=== PATIENT | female | born 1965 | race Caucasian/White ===

== ENCOUNTER 2022-04-27 21:03 | Emergency (ER) | payer BC ==
[2022-04-27] MEDS ORDERED: MORPHINE 4 MG/ML SYR ONE (21:31)
[2022-04-27] MEDS ORDERED: DOXYCYCLINE 100 MG CAP PO ONE (21:31)
[2022-04-27] MEDS ORDERED: ONDANSETRON 4 MG/2 ML VIAL ONE (21:31)
[2022-04-27] MEDS ORDERED: NA CHLORIDE 0.9% 1,000 ML ONE (21:31)
[2022-04-27] MEDS ORDERED: TETANUS & DIPHTHERIA TOX,ADULT 0.5 ML VIAL ONE (21:32)
[2022-04-27 21:35] LABS: Absolute Lymphocytes (CBC) 1.5 K/uL (0.7-4.9); Hematocrit 36.1 % (36.0-45.0); Lymphocytes % 12.4 % (15.3-44.8); MCV 78.7 fL (80-100); MPV 7.7 fL (7.6-11.3); RBC Red Blood Cell Count 4.59 M/uL (3.86-4.86)
[2022-04-27 21:49] LABS: Albumin 3.7 g/dL (3.4-5.0); Bilirubin Total 0.2 mg/dL (0.2-1.0); Potassium 3.7 mmol/L (3.5-5.1); Protein, Total 7.7 g/dL (6.4-8.2)
--- NOTE | 2022-04-27 22:08 | RAD REPORT ---
EXAM DESCRIPTION: RAD - Foot Right 3 View - 04/27/2022 9:43 pm CLINICAL HISTORY: PAIN COMPARISON: No comparisons FINDINGS: No fracture, dislocation or foreign body. Large plantar calcaneal spur.
--- NOTE | 2022-04-27 22:53 | EDPHYS ---
Physician Documentation [facility] Name: Dawit Branch Age: 56 yrs Sex: Female : 1965 Arrival Date: 04/27/2022 Time: 21:04 Bed 23 Private MD: ED Physician Eugene Rosado HPI: 04/27 22:45 This 56 yrs old Female presents to ER via Wheelchair with complaints of marlene Puncture Wound To Foot - stingray. 22:45 The patient presents with decreased range of motion, pain, that is acute. The marlene complaints affect the right foot. Context: [place] ray. Onset: The symptoms/episode began/occurred just prior to arrival. Modifying factors: The symptoms are alleviated by the symptoms are aggravated by nothing. Associated signs and symptoms: Pertinent positives: swelling. Severity of symptoms: At their worst the symptoms were moderate, in the emergency department the symptoms are unchanged. The patient has not experienced similar symptoms in the past. 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 - Social history:: Smoking status: Patient denies any tobacco usage or history of. - Family history:: not pertinent. ROS: 22:45 Constitutional: Negative for fever, chills, and weight loss, Eyes: Negative for injury, marlene pain, redness, and discharge, ENT: Negative for injury, pain, and discharge, Neck: Negative for injury, pain, and swelling, Cardiovascular: Negative for chest pain, palpitations, and edema, Respiratory: Negative for shortness of breath, cough, wheezing, and pleuritic chest pain, Abdomen/GI: Negative for abdominal pain, nausea, vomiting, diarrhea, and constipation, Back: Negative for injury and pain, : Negative for injury, bleeding, discharge, and swelling, Skin: Negative for injury, rash, and discoloration, Neuro: Negative for headache, weakness, numbness, tingling, and seizure, Psych: Negative for depression, anxiety, suicide ideation, homicidal ideation, and hallucinations, Allergy/Immunology: Negative for hives, rash, and allergies, Endocrine: Negative for neck swelling, polydipsia, polyuria, polyphagia, and marked weight changes, Hematologic/Lymphatic: Negative for swollen nodes, abnormal bleeding, and unusual bruising. 22:45 MS/extremity: Positive for erythema, pain, swelling, tenderness, of the lateral side of right foot and dorsum of right foot. Exam: 22:45 Constitutional: This is a well developed, well nourished patient who is awake, alert, marlene and in no acute distress. Head/Face: Normocephalic, atraumatic. Eyes: Pupils equal round and reactive to light, extra-ocular motions intact. Lids and lashes normal. Conjunctiva and sclera are non-icteric and not injected. Cornea within normal limits. Periorbital areas with no swelling, redness, or edema. ENT: Nares patent. No nasal discharge, no septal abnormalities noted. Tympanic membranes are normal and external auditory canals are clear. Oropharynx with no redness, swelling, or masses, exudates, or evidence of obstruction, uvula midline. Mucous membranes moist. Neck: Trachea midline, no thyromegaly or masses palpated, and no cervical lymphadenopathy. Supple, full range of motion without nuchal rigidity, or vertebral point tenderness. No Meningismus. Chest/axilla: Normal chest wall appearance and motion. Nontender with no deformity. No lesions are appreciated. Cardiovascular: Regular rate and rhythm with a normal S1 and S2. No gallops, murmurs, or rubs. Normal PMI, no JVD. No pulse deficits. Respiratory: Lungs have equal breath sounds bilaterally, clear to auscultation and percussion. No rales, rhonchi or wheezes noted. No increased work of breathing, no retractions or nasal flaring. Abdomen/GI: Soft, non-tender, with normal bowel sounds. No distension or tympany. No guarding or rebound. No evidence of tenderness throughout. Back: No spinal tenderness. No costovertebral tenderness. Full range of motion. Neuro: Awake and alert, GCS 15, oriented to person, place, time, and situation. Cranial nerves II-XII grossly intact. Motor strength 5/5 in all extremities. Sensory grossly intact. Cerebellar exam normal. Normal gait. Psych: Awake, alert, with orientation to person, place and time. Behavior, mood, and affect are within normal limits. 22:45 Skin: induration, that is mild is noted, injury, puncture(s), that are deep, of the right foot. Vital Signs: 21:31 BP 123 / 76; Pulse 93; Resp 20; Temp 98.3(O); Pulse Ox 99% on R/A; Weight 140.61 kg; 1 Height 5 ft. 4 in. (162.56 cm); Pain 10/10; 22:48 BP 114 / 63; Pulse 88; Resp 20; Pulse Ox 97% on R/A; bh1 21:31 Body Mass Index 53.21 (140.61 kg, 162.56 cm) [facility] MDM: 21:13 Patient medically screened. [facility] 22:48 Differential diagnosis: penetrating trauma. Data reviewed: vital signs, nurses notes. 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 Test interpretation: by ED physician or midlevel provider: plain radiologic studies. Counseling: I had a detailed discussion with the patient and/or guardian regarding: the historical points, exam findings, and any diagnostic results supporting the discharge/admit diagnosis, lab results, radiology results, the need for outpatient follow up, for definitive care, a family practitioner, a general surgeon. 04/27 21:15 Order name: CBC with Diff; Complete Time: 22:45 [facility] 04/27 21:15 Order name: Comprehensive Metabolic Panel; Complete Time: 22:45 [facility] 04/27 21:15 Order name: Foot Right 3 View XRAY; Complete Time: 22:45 [facility] 04/27 21:15 Order name: Misc. Order: hot water soaks/tib; Complete Time: 21:30 [facility] Administered Medications: 21:29 Drug: NS 0.9% 1000 ml Route: IV; Rate: 1 bolus; Site: left antecubital; 1 23:07 Follow up: IV Status: Completed infusion; IV Intake: 1000ml [facility] 21:30 Not Given (Patient Refused; had in 2019 Provide Vaccine Information Statement (VIS). 21:30 Drug: morphine 4 mg Route: IVP; Infused Over: 4 mins; Site: right antecubital; 1 21:46 Follow up: Response: No change in condition [facility] 21:30 Drug: Zofran (Ondansetron) 4 mg Route: IVP; Site: right antecubital; 1 21:46 Follow up: Response: No adverse reaction [facility] 21:30 Drug: Doxycycline 200 mg Route: PO; 1 21:47 Follow up: Response: No adverse reaction [facility] Disposition Summary: 04/27/22 22:52 Discharge Ordered Location: Home [facility] Problem: new marlene Symptoms: have improved marlene Condition: Stable marlene Diagnosis - Puncture wound without foreign body, right foot - Sting Ray marlene Followup: marlene - With: Private Physician - When: 2 - 3 days - Reason: Recheck today's complaints, Continuance of care, Re-evaluation by your physician Followup: marlene - With: Abhishek Macias MD - When: 2 - 3 days - Reason: Recheck today's complaints, Re-evaluation by your physician Discharge Instructions: - Discharge Summary Sheet [facility] - [employer] Injury marlene - Puncture Wound marlene - Puncture Wound, [id number] marlene - [employer] Injury, [id number] [facility] Forms: - Medication Reconciliation Form [facility] - Thank You Letter [facility] - Antibiotic Education [facility] - Prescription Opioid Use [facility] Prescriptions: - Doxycycline Hyclate 100 mg Oral Tablet - take 1 tablet by ORAL route every 12 hours; 20 tablet; Refills: 0, Product [facility] Selection Permitted - Tylenol-Codeine #3 300 mg-30 mg Oral - take 2 tablet by ORAL route every 6 hours; 24 tablet; Refills: 0, Product [facility] Selection Permitted Signatures: Dispatcher [employer] Eugene Roberts MD MD cha Hicks, Barbara, RN RN [facility]
--- NOTE | 2022-04-27 22:53 | ER ---
Nurse's Notes [facility] Name: Dawit Branch Age: 56 yrs Sex: Female : 1965 Arrival Date: 04/27/2022 Time: 21:04 Bed 23 Private MD: Diagnosis: Puncture wound without foreign body, right foot-Sting Ray Presentation: 04/27 21:31 Chief complaint: Patient states: PATIENT REPORTS BEING STUNG BY A STING RAY ON RIGHT 1 LATERAL FOOT AROUND 630 THIS EVENING. Coronavirus screen: Vaccine status: Patient reports receiving the 2nd dose of the covid vaccine. Client denies travel out of the [place] in the last 14 days. At this time, the client does not indicate any symptoms associated with coronavirus-19. Ebola Screen: Patient negative for fever greater than or equal to 101.5 degrees Fahrenheit, and additional compatible Ebola Virus Disease symptoms. Initial Sepsis Screen: Does the patient meet any 2 criteria? HR > 90 bpm. No. Patient's initial sepsis screen is negative. Does the patient have a suspected source of infection? No. Patient's initial sepsis screen is negative. 21:31 Method Of Arrival: Wheelchair [facility] 21:31 Risk Assessment: Do you want to hurt yourself or someone else? Patient reports no [facility] desire to harm self or others. Onset of symptoms was April 27, 2022 at 18:30. 21:31 Acuity: GIOVANNI 3 [facility] Triage Assessment: 21:33 General: Appears in no apparent distress. uncomfortable, Behavior is calm, cooperative, [facility] appropriate for age. Pain: Complains of pain in right foot. 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 - Social history:: Smoking status: Patient denies any tobacco usage or history of. - Family history:: not pertinent. Screenin:35 Abuse screen: Denies threats or abuse. Nutritional screening: No deficits noted. [facility] Tuberculosis screening: No symptoms or risk factors identified. Fall Risk None identified. Assessment: 21:35 Reassessment: No changes from previously documented assessment. [facility] Vital Signs: 21:31 BP 123 / 76; Pulse 93; Resp 20; Temp 98.3(O); Pulse Ox 99% on R/A; Weight 140.61 kg; [facility] Height 5 ft. 4 in. (162.56 cm); Pain 10/10; 22:48 BP 114 / 63; Pulse 88; Resp 20; Pulse Ox 97% on R/A; 1 21:31 Body Mass Index 53.21 (140.61 kg, 162.56 cm) [facility] ED Course: 21:04 Patient arrived in ED. as 21:13 Eugene Rosado MD is Attending Physician. [facility] 21:13 Bianca Echevarria, VISHAL is Primary Nurse. [facility] 21:30 Comprehensive Metabolic Panel Sent. [facility] 21:30 CBC with Diff Sent. [facility] 21:33 Triage completed. [facility] 21:33 Arm band placed on right wrist. [facility] 21:35 No apparent distress. Awaiting lab results, Awaiting radiology results. Awaiting ED [facility] provider evaluation. 21:35 No provider procedures requiring assistance completed. Inserted saline lock: 20 gauge bh1 in right antecubital area, using aseptic technique. Blood collected. 21:35 Patient has correct armband on for positive identification. Placed in gown. Bed in low bh1 position. Call light in reach. Side rails up X 1. Pulse ox on. NIBP on. 21:44 Foot Right 3 View XRAY In Process Unspecified. EDMS 22:48 No apparent distress. Resting quietly. Awaiting disposition. [facility] 22:50 Abhishek Macias MD is Referral Physician. [facility] 23:07 IV discontinued, intact, bleeding controlled, No redness/swelling at site. [facility] Administered Medications: 21:29 Drug: NS 0.9% 1000 ml Route: IV; Rate: 1 bolus; Site: left antecubital; [facility] 23:07 Follow up: IV Status: Completed infusion; IV Intake: 1000ml [facility] 21:30 Not Given (Patient Refused; had in 2019 Provide Vaccine Information Statement (VIS). 21:30 Drug: morphine 4 mg Route: IVP; Infused Over: 4 mins; Site: right antecubital; [facility] 21:46 Follow up: Response: No change in condition [facility] 21:30 Drug: Zofran (Ondansetron) 4 mg Route: IVP; Site: right antecubital; [facility] 21:46 Follow up: Response: No adverse reaction [facility] 21:30 Drug: Doxycycline 200 mg Route: PO; [facility] 21:47 Follow up: Response: No adverse reaction [facility] Medication: 21:35 VIS not applicable for this client. [facility] Intake: 23:07 IV: 1000ml; Total: 1000ml. [facility] Outcome: 22:48 Discharged to home ambulatory. [facility] 22:52 Discharge ordered by MD. rosario 23:06 Condition: good [facility] 23:06 Discharge instructions given to patient, family, Instructed on discharge instructions, follow up and referral plans. medication usage, Demonstrated understanding of instructions, follow-up care, medications, Prescriptions given X 2. 23:07 Patient left the ED. [facility] Signatures: Dispatcher [employer] Eugene Roberts MD MD cha Martinez, Amelia as Hicks, Barbara, RN RN [facility]
[2022-04-27 23:15] VITALS: TEMP 98.3
[2022-04-27 23:16] VITALS: BP 114/63; O2SAT 97
== END 2022-04-27 23:07 | disposition home or self-care (01) ==
LOC: ER 21:03
DX: S91.331A Puncture wound without foreign body, right foot, initial encounter (principal); W56.82XA Struck by other nonvenomous marine animals, initial encounter; Z88.2 Allergy status to sulfonamides
CPT/HCPCS: 85025; 36415; 80053; 73630; J7030; J2405; 90714; 96361; 96374; 96375; 99284